=== PATIENT | male | born 1950 | race Two or more races ===

== ENCOUNTER → 2017-01-18 | Outpatient (CLI) | payer MEDICARE, MEDICAID ==
[~2017-01-18] MED LIST: ACTOS30 MG PO; AMARYL4 MG PO; AMBIEN5 MG PO; ASCORBIC ACID500 MG PO; ASPIRIN (CHILDR81 MG; ASPIRIN (CHILDR81 MG PO; ASPIRIN LO-DOSE81 MG PO; GLUCOPHAGE500 MG PO; HYZAAR 100-251 EACH PO; HYZAAR 50-12.51 TAB PO; INVOKANA100 MG PO; LEVEMIR100 UNIT/1 SUB-Q; LIPITOR80 MG PO; LOPRESSOR25 MG PO; MELATONIN3 MG PO; METFORMIN HCL1000 MG PO; NOVOLOG100 UNIT/M SUB-Q; PLAVIX75 MG PO; PROTONIX40 MG PO; THERAGRAN-M1 TAB PO; TYLENOL325 MG PO; VITAMIN D-32000 UNI1 PO; ZOCOR40 MG PO
--- NOTE | ~2017-01-18 | PUL ---
PATIENT'S NAME: [facility] AGE: 66 Y [address] ROOM: [place] [address] LOCATION: [facility] ADMIT DATE: 01/18/2017 Pulmonary DISCHARGE DATE: FAMILY PHYSICIAN: KALEIGH SNOW MD ATTENDING PHYSICIAN: KALEIGH SNOW NAME OF PROCEDURE: Sleep study PROCEDURE DATE: 01/18/17 TECH: CHETAN Degroot TEST #: [facility] [place]# [id number] TECHNICAL PARAMETERS: The patient was studied using International 10/20 measuring system. While the patient was studied, there was continuous monitoring of EEG (8 leads), EOG (2 leads), EKG (3 leads), submental EMG (3 leads), tibial (4 leads), respiratory inductive plethysmography (RIP) for thoracic and abdominal effort, oral and nasal airflow with a thermocouple and pressure transducer, and oximetry. The property technician also performed visual and auditory observations noting things like body position, patient's status, breath sounds, artifact, snoring level and patient comments. Continuous sound was monitored using a 2-way speaker system and video monitoring was performed using an infrared camera. Review of the entire study was performed epoch by epoch utilizing a single epoch and multiple epoch capability sleep system. MEDICAL HISTORY: Patient is a 66-year-old overweight gentleman daytime sleepiness and snoring. SLEEP STAGE SUMMARY: The patient was studied for 422 minutes of which he slept 285 minutes. He fell asleep in 8 minutes and slept for 68% of the night. Sleep architecture revealed a decline in slow wave and a mild decline in REM sleep. RESPIRATORY SUMMARY: Oxygen saturation ranged from 93-96%. This study was done to titrate CPAP which was started at 6 cm and titrated to 12 cm with good control of the respiratory events. EKG SUMMARY: No dysrhythmias were noted. LIMB MOVEMENT SUMMARY: Periodic limb movements noted early in the study but resolved with control of the sleep apnea. ASSESSMENT: Obstructive sleep apnea responsive to CPAP at 12 cm. PATIENT'S NAME: [facility] AGE: 66 Y [address] ROOM: [place] [address] LOCATION: [facility] ADMIT DATE: 01/18/2017 Pulmonary DISCHARGE DATE: FAMILY PHYSICIAN: KALEIGH SNOW MD ATTENDING PHYSICIAN: KALEIGH SNOW PLAN: Suggest CPAP at 12 cm. MD NEFTALI HERMOSILLO/ /[id number] dtt: 01/27/17 0827 , Damián Strauss dtd: 01/20/17 1508
== END | disposition disaster alternative care site (69) ==
LOC: GSLP 11-26 21:00
DX: G47.33 Obstructive sleep apnea (adult) (pediatric) (principal)